=== PATIENT | female | born 1950 | race Caucasian/White ===

== ENCOUNTER 2021-02-11 12:02 | Emergency (ER) | payer MEDICARE ==
[2021-02-11] MEDS ORDERED: PREDNISONE 20MG20 MG PO (15:12)
== END 2021-02-11 15:25 | disposition home or self-care (01) ==
LOC: FER 12:02
DX: J98.01 Acute bronchospasm (principal); J30.9 Allergic rhinitis, unspecified; I10 Essential (primary) hypertension; E03.9 Hypothyroidism, unspecified; Z79.890 Hormone replacement therapy; Z79.899 Other long term (current) drug therapy
CPT/HCPCS: 99283

== ENCOUNTER 2022-02-18 13:38 | Emergency (ER) | payer MEDICARE ==
[~2022-02-18 13:38] MED LIST: CEFDINIR300 MG PO; DULERA 200 MCG8.8 GM INH; HCTZ25 MG PO; MUCINEX1200 MG PO; NORVASC5 MG PO; PREDNISONE 20MG20 MG PO; SINGULAIR10 MG PO; SYNTHROID88 MCG PO; ZPAK PO
[2022-02-18 14:20] LABS: BASOPHIL 1.4 % (0-2); BILIRUBIN NEGATIVE (NEGATIVE); BLOOD TRACE-INTACT Ery/uL (NEGATIVE); CLARITY CLEAR (CLEAR); COLOR YELLOW (YELLOW); EOSINOPHIL 8.4 % (0-7); GLUCOSE (U) NORMAL (NORMAL); HCT 39.9 % (37.0-47.0); HGB 13.4 g/dl (12.5-16.0); LEUKOCYTES 1+ Leu/uL (NEGATIVE); LYMPHOCYTE 24.6 % (15-48); MCH 31.9 pg (25.0-31.0); MCHC 33.6 g/dL (32.0-36.0); MONOCYTE 8.7 % (0-12); NEUTROPHIL 56.6 % (41-80); NITRITE NEGATIVE (NEGATIVE); NRBC 0; PLT 228 K/uL (150-400); PROTEIN NEGATIVE (NEGATIVE); RDW 11.9 % (11.5-14.0); UROBILINOGEN 0.2 mg/dL (0.2-1.0); WBC 7.7 K/uL (4.0-10.5)
[2022-02-18 14:25] LABS: URINARY RBC RARE; URINARY WBC RARE
[2022-02-18 14:45] LABS: CREATININE 0.75 mg/dL (0.51-0.95); POTASSIUM 3.9 mmol/L (3.5-5.1)
[2022-02-18] MEDS ORDERED: PYRIDIUM100 MG PO (16:21)
[2022-02-18] MEDS ORDERED: BACTRIM DS TAB1 EACH PO (16:21)
[2022-02-18] MEDS ORDERED: CEFDINIR300 MG PO (17:27)
== END 2022-02-18 16:38 | disposition home or self-care (01) ==
LOC: FER 13:38
PROVIDERS: Nurse Practitioner Family
DX: N39.0 Urinary tract infection, site not specified (principal); I10 Essential (primary) hypertension
CPT/HCPCS: 36415; 80048; 81001; 85025; 87088; 99283